=== PATIENT | female | born 1945 | race Caucasian/White ===

== ENCOUNTER 2018-10-10 09:16 | Emergency (ER) | payer MEDICARE, OTHER ==
[2018-10-10 09:31] VITALS: BP 165/62
--- NOTE | 2018-10-10 09:59 | UC ---
Cardiac HPI - HPI Summary HPI Summary: 73 y/o female with h/o cardiac [facility] s/p open heart surgery "years ago" presents with pain a L ribs. MInimal pain at rest, worse with movement. + cough, non- productive. + congestions. + mild lower back pain. Fall several weeks ago , resolved. No new activities, trauma, made beds yesterday and feels may have aggravated symptoms. Denies- deep chest pain, palpitations, l arm pain, l jaw pain, no jaw pain. no pain at rest, worse with movement. - History of Current Complaint Chief Complaint: UCUpperExtremity Stated Complaint: PAIN IN RIB CAGE Time Seen by Provider: 10/10/18 09:58 Hx Obtained From: Patient, Family/Organ Grinder - Onset/Duration: Sudden Onset, Lasting Days Initial Severity: Moderate Current Severity: Moderate Pain Intensity: 5 Chest Pain Location: Diffuse, Discrete at: - L ribs, lower back - Allergy/Home Medications Allergies/Adverse Reactions: Allergies Allergy/AdvReac Type Severity Reaction Status Date / Time acetaminophen [From Tylenol] Allergy GI Upset Verified 10/10/18 09:31 pioglitazone [From Actos] Allergy Swelling Verified 10/10/18 09:31 Of Face,Lips,& Throat PMH/Surg Hx/FS Hx/Imm Hx Previously Healthy: No - [facility] - Surgical History Surgical History: Yes Surgery Procedure, Year, and Place: cardiac with stents 1995, open heart - Social History Alcohol Use: Rare Substance Use Type: None Smoking Status (MU): Never Smoked Tobacco Review of Systems All Other Systems Reviewed And Are Negative: Yes Constitutional: Positive: Negative Respiratory: Positive: Cough Musculoskeletal: Positive: Arthralgia, Myalgia Physical Exam Triage Information Reviewed: Yes Appearance: Well-Appearing, No Pain Distress, Well-Nourished Vital Signs: Initial Vital Signs Temp 97.6 F 10/10/18 09:25 Pulse 77 10/10/18 09:25 Resp 18 10/10/18 09:25 BP 165/62 10/10/18 09:25 Pulse Ox 99 10/10/18 09:25 Vital Signs Reviewed: Yes Eyes: Positive: Conjunctiva Clear ENT: Positive: Pharynx normal, TMs normal, Uvula midline. Negative: TM bulging , TM dull, TM red, Tonsillar swelling, Tonsillar exudate, Sinus tenderness Neck exam: Normal Neck: Positive: Supple, Nontender, No Lymphadenopathy. Negative: Nuchal Rigidity Respiratory: Positive: Chest non-tender, Lungs clear, Normal breath sounds, No respiratory distress, No accessory muscle use. Negative: Respiratory distress, Crackles, Rhonchi, Stridor, Wheezing Cardiovascular: Positive: RRR, No Murmur Abdomen Description: Positive: Nontender, No Organomegaly. Negative: CVA Tenderness (R), CVA Tenderness (L) Musculoskeletal: Positive: ROM Intact - intact FF at waist., No Edema, Other: - TTP over SI joint extending on the L into soft tissues of lower back/ flank. TTP over ~ 9 intercastal space extending to back/ midax line. R shouler iwth pain with RC testing, + impingement signs. Skin Exam: Normal - Assessment/Plan Course Of Treatment: likel lower back strain with sprain of intercoastal muscles, NSAIDS, stretching. FOllow up with orthopedics if no improvement - Clinical Impression Provider Diagnosis: Muscle strain, SI joint arthritis Discharge - Sign-Out/Discharge Documenting (check all that apply): Patient Departure All imaging exams completed and their final reports reviewed: No Studies - Discharge Plan Condition: Good Disposition: HOME Prescriptions: Naproxen [Naproxen 250 mg tab] 250 mg PO BID #60 tablet Patient Education Materials: Muscle Strain (ED) Referrals: No Primary Care Phys,NOPCP [Primary Care Provider] - Additional Instructions: - Naproxen twice daily for 3 days to decrease swelling, pain - Follow up with orthopedics for repeat evaluation and evaluation of shoulder - Go to ER with chest pain, shortness of breath, left arm pain, increasing symtpoms, fever or chills. - Billing Disposition and Condition Condition: GOOD Disposition: Home
== END 2018-10-10 10:30 | disposition home or self-care (01) ==
LOC: UCEAST 09:16
DX: S39.012A Strain of muscle, fascia and tendon of lower back, initial encounter (principal); M46.88 Other specified inflammatory spondylopathies, sacral and sacrococcygeal region; R09.81 Nasal congestion; R05 Cough; Z88.8 Allergy status to other drugs, medicaments and biological substances; X58.XXXA Exposure to other specified factors, initial encounter; Y92.9 Unspecified place or not applicable
CPT/HCPCS: 99202; G0463